=== PATIENT | female | born 1950 | race American Indian/Alaskan Native ===

== ENCOUNTER 2016-09-03 07:29 | Outpatient (CLI) | payer MEDICARE ==
--- NOTE | 2016-09-03 09:10 | Mammography Report ---
Screening mammogram: Routine views are compared to prior exams dating back to 2014. Several small nodules are noted in the right breast which appear generally stable. There is a single nodule which is slightly more dominant in size and density located in the inferior lateral breast which has been present on prior exams however demonstrates subtle enlargement from 2014 to 2016. There are a couple of associated calcifications. Is unclear as to whether it has actually changed since 2016. The remainder the breast pattern is generally fatty-replaced and unremarkable bilaterally. CAD used. Impression: Indeterminate right breast nodule. Recommendation: Spot compression imaging and ultrasound of the right breast nodule. BI-RADS CATEGORY: 0 = Needs additional imaging evaluation ACR BI-RADS MAMMOGRAPHIC CODES: 0 = Needs additional imaging evaluation; 1 = Negative; 2 = Benign; 3 = Probably benign; 4 = Suspicious; 5 = Malignant; 6 = Known biopsy-proven malignancy COMMENT: 1. Dense breast tissue, i.e., adenosis, fibrocystic changes, etc., may obscure an underlying neoplasm. 2. Approximately 10% of cancers are not detected with mammography. 3. A negative mammography report should not delay biopsy if a clinically suspicious mass is present.
== END 2016-09-03 07:30 | disposition home or self-care (01) ==
LOC: MAMMO 07:29
PROVIDERS: ATTEND Internal Medicine
DX: Z12.31 Encounter for screening mammogram for malignant neoplasm of breast (principal)
CPT/HCPCS: 77067; G0202

== ENCOUNTER 2016-10-16 12:54 | Outpatient (CLI) | payer MEDICARE ==
--- NOTE | 2016-10-16 14:20 | Ultrasound Report ---
RIGHT DIGITAL DIAGNOSTIC MAMMOGRAM and RIGHT BREAST ULTRASOUND: 10/16/16 12:54:00 CLINICAL: Recalled for asymmetry. COMPARISON:09/03/16 screening FINDINGS: ML and spot compression MLO and CC views were performed. A lower outer nodular asymmetry with poorly defined margins persists on all views. Ultrasound of the right breast was performed from 7 o'clock to 10 o'clock and demonstrated normal fibroglandular structures are normal fatty structures. No mass, cyst or shadowing. IMPRESSION: A probably benign lower outer nodular asymmetry with poorly defined margins. It is probably stable compared to prior exams. BI-RADS CATEGORY: 3 - - Probably Benign RECOMMENDATION: Six month followup right mammogram and right breast ultrasound if needed. ACR BI-RADS MAMMOGRAPHIC CODES: 0 = Needs additional imaging evaluation; 1 = Negative; 2 = Benign; 3 = Probably benign; 4 = Suspicious; 5 = Malignant; 6 = Known biopsy-proven malignancy COMMENT: 1. Dense breast tissue, i.e., adenosis, fibrocystic changes, etc., may obscure an underlying neoplasm. 2. Approximately 10% of cancers are not detected with mammography. 3. A negative mammography report should not delay biopsy if a clinically suspicious mass is present. COMMENT: Patient follow-up letters are generated via our [employer] application.
== END 2016-10-16 12:55 | disposition home or self-care (01) ==
LOC: SPVWC 12:54
PROVIDERS: ATTEND Physician Assistant Medical
DX: N63 Unspecified lump in breast (principal); N64.89 Other specified disorders of breast
CPT/HCPCS: 76642; G0206

== ENCOUNTER 2017-03-18 08:24 | Outpatient (CLI) | payer MEDICARE ==
--- NOTE | 2017-03-18 09:11 | Mammography Report ---
RIGHT DIGITAL DIAGNOSTIC MAMMOGRAM with CAD: 03/18/17 08:24:00 CLINICAL: Follow-up asymmetry. COMPARISON:10/16/16, 09/03/16 and 09/02/15 FINDINGS: The previously described outer asymmetry with poorly defined margins and a few benign-appearing calcifications is stable. Upper and lower asymmetries on MLO and lateral views are also stable. IMPRESSION: Benign asymmetries. BI-RADS CATEGORY: 2 -- Benign RECOMMENDATION: Return to routine mammographic screening. ACR BI-RADS MAMMOGRAPHIC CODES: 0 = Needs additional imaging evaluation; 1 = Negative; 2 = Benign; 3 = Probably benign; 4 = Suspicious; 5 = Malignant; 6 = Known biopsy-proven malignancy COMMENT: 1. Dense breast tissue, i.e., adenosis, fibrocystic changes, etc., may obscure an underlying neoplasm. 2. Approximately 10% of cancers are not detected with mammography. 3. A negative mammography report should not delay biopsy if a clinically suspicious mass is present. COMMENT: Patient follow-up letters are generated by our [employer] application.
== END 2017-03-18 08:25 | disposition home or self-care (01) ==
LOC: SPVWC 08:24
PROVIDERS: ATTEND Physician Assistant Medical
DX: N64.89 Other specified disorders of breast (principal); R92.8 Other abnormal and inconclusive findings on diagnostic imaging of breast

== ENCOUNTER 2017-09-17 14:14 | Outpatient (CLI) | payer MEDICARE ==
--- NOTE | 2017-09-19 15:08 | Mammography Report ---
BILATERAL DIGITAL SCREENING MAMMOGRAM with CAD: 09/17/17 14:14:00 CLINICAL: Routine screening. COMPARISON:09/03/16 bilateral screening mammogram and right mammograms from 10/16/16 and 03/18/17 FINDINGS: The breasts are mostly fatty. A right upper outer focal asymmetry appears larger than on prior exams and requires additional imaging. No architectural distortion or suspicious calcifications.The left breast is negative. IMPRESSION: Right focal asymmetry requiring further workup. BI-RADS CATEGORY: 0 -- Additional Imaging Evaluation Required RECOMMENDATION: Recall for right upper outer spot magnification views and targeted right breast ultrasound. ACR BI-RADS MAMMOGRAPHIC CODES: 0 = Needs additional imaging evaluation; 1 = Negative; 2 = Benign; 3 = Probably benign; 4 = Suspicious; 5 = Malignant; 6 = Known biopsy-proven malignancy COMMENT: 1. Dense breast tissue, i.e., adenosis, fibrocystic changes, etc., may obscure an underlying neoplasm. 2. Approximately 10% of cancers are not detected with mammography. 3. A negative mammography report should not delay biopsy if a clinically suspicious mass is present. COMMENT: Patient follow-up letters are generated via our [employer] application.
== END 2017-09-17 14:15 | disposition home or self-care (01) ==
LOC: SPVWC 14:14
PROVIDERS: ATTEND Physician Assistant Medical
DX: Z12.31 Encounter for screening mammogram for malignant neoplasm of breast (principal)
CPT/HCPCS: 77067